=== PATIENT | female | born 1990 | race Caucasian/White ===

== ENCOUNTER 2024-04-02 15:09 | Outpatient (CLI) | payer OTHER, SELFPAY ==
--- NOTE | ~2024-04-02 | US_ITS ---
EXAMINATION: US thyroid DATE: 04/02/2024 15:44 INDICATION: Goiter. Thyroid nodule. Graves' disease. TECHNIQUE: Multiple ultrasound images of the thyroid were obtained. COMPARISON: None. FINDINGS: The right thyroid lobe measures 5.2 x 1.2 x 2.0 cm. The left thyroid lobe measures 4.5 x 1.4 x 1.8 c m. No discrete nodules identified. Normal vascular flow is present. IMPRESSION: 1. Normal thyroid. Reviewed, dictated and finalized at location E. IMPRESSION: 1. Normal thyroid.
== END 2024-04-02 15:10 | disposition home or self-care (01) ==
LOC: ANHIMG 15:13
PROVIDERS: Visit Provider Internal Medicine
DX: E04.9 Nontoxic goiter, unspecified (principal); R63.5 Abnormal weight gain; R79.89 Other specified abnormal findings of blood chemistry
CPT/HCPCS: 76536